=== PATIENT | male | born 1980 | race Caucasian/White ===

== ENCOUNTER 2017-01-29 12:54 | Emergency (ER) | payer SELFPAY ==
[~2017-01-29] VITALS: Ht 188 cm; Wt 88.5 kg
--- NOTE | 2017-01-29 13:15 | NUR ---
PT BIB SELF C/O REED, CP, AND ABD PAIN. CP NONPROVOKED AND NONRADIATING. C/O N/V/D, NO VOMITING NOTED, NO HEMATEMESIS, NO DYSURIA/HEMATURIA. RESP EVEN UNLABORED. SKIN WARM NONDIAPHORETIC. IN ER BED 14 ON MONITOR.
[2017-01-29] MEDS ORDERED: IV NS 0.9% 1,000 ML BAG IV ONE (13:30)
[2017-01-29] MEDS ORDERED: LORAZEPAM INJ 2 MG/ML VIAL IV ONE (13:30)
[2017-01-29] MEDS ORDERED: LORAZEPAM INJ 2 MG/ML VIAL ONE (13:32)
[2017-01-29] MEDS ORDERED: IV NS 0.9% 1,000 ML ONE (13:32)
[2017-01-29] MEDS ORDERED: IV SET PRIMARY 1 EA INFUS.SET MC ONE (13:32)
[2017-01-29 13:57] LABS: TROPONIN I < 0.017 ng/mL (0.00-0.056)
[2017-01-29 14:07] LABS: HEMATOCRIT 45 % (39-51); HEMOGLOBIN 15.3 g/dL (13.5-17.5); LYMPHOCYTES # (AUTO) 1.2 /CMM (0.8-4.8); LYMPHOCYTES % (AUTO) 7.2 % (20.0-44.0); MEAN CORPUSCULAR HEMOGLOBIN 31 PG (26.0-33.0); MEAN CORPUSCULAR HGB CONC 34 g/dl (31.0-36.0); MEAN CORPUSCULAR VOLUME 91 fL (80-96); MONOCYTES # (AUTO) 0.6 /CMM (0.1-1.30); MONOCYTES % (AUTO) 3.6 % (2.0-12.0); NEUTROPHILS # (AUTO) 15.3 /CMM (1.8-8.9); NEUTROPHILS % (AUTO) 89.2 % (43.0-81.0); PLATELET COUNT (AUTO) 256 /CMM (150-450); RED BLOOD CELL COUNT(AUTO) 4.91 MIL/uL (4.5-6.0); WHITE BLOOD COUNT (AUTO) 17.1 K/uL (4.3-11.0)
[2017-01-29 14:09] LABS: CALCIUM, SERUM 9.3 mg/dL (8.5-10.1); CARBON DIOXIDE 22 mmol/L (21-32); CHLORIDE 100 mmol/L (98-107); CREATININE 1.5 mg/dL (0.6-1.3); GFR 53 mL/min (>60); GLUCOSE 162 mg/dL (74-106); POTASSIUM 3.3 mmol/L (3.5-5.1); SODIUM SERUM 138 mmol/L (136-145); UREA NITROGEN, BLOOD 12 mg/dL (7-18)
[2017-01-29 14:12] LABS: ALANINE AMINOTRANSFERASE 30 U/L (12-78); ALBUMIN 4.6 g/dL (3.4-5.0); ALKALINE PHOSPHATASE 95 U/L (46-116); ASPARTATE AMINOTRANSFERASE 16 U/L (15-37); BILIRUBIN,DIRECT 0.1 mg/dL (0.0-0.2); BILIRUBIN,TOTAL 0.4 mg/dL (0.2-1.0); LIPASE 96 U/L (73-393); TOTAL PROTEIN, SERUM 7.9 g/dL (6.4-8.2)
--- NOTE | 2017-01-29 14:37 | NUR ---
Patient discharged to home in stable condition. Written and verbal after care instructions given. Patient verbalizes understanding of instruction. IV removed. Catheter intact and site benign. Pressure and 4x4 applied to site. No bleeding noted. AMBULATORY WITH STEADY GAIT.
[2017-01-29 14:39] VITALS: BP 136/79
== END 2017-01-29 14:40 | disposition home or self-care (01) ==
LOC: ER 12:55
DX: R10.9 Unspecified abdominal pain (principal); F41.9 Anxiety disorder, unspecified; R07.89 Other chest pain; R51 Headache
CPT/HCPCS: 36415; 80048; 80076; 83690; 84484; 85025; 93005; 96361; 96374; 99285; A4606; J2060; J7030; Z7610

== ENCOUNTER 2020-09-01 04:46 | Emergency (ER) | payer BC, MEDICAID ==
[~2020-09-01] VITALS: Ht 188 cm; Wt 90.7 kg
[2020-09-01] MEDS ORDERED: ONDANSETRON HCL/PF 4 MG/2 ML VIAL ONE (05:28)
[2020-09-01] MEDS ORDERED: ONDANSETRON HCL/PF 4 MG/2 ML VIAL IVP ONE (05:30)
[2020-09-01] MEDS ORDERED: IV NS 0.9% 1,000 ML BAG IV ONE (05:30)
--- NOTE | 2020-09-01 05:38 | NUR ---
PATIENT CAME TO ER BED 6 C/O MIDEPIGASTRIC PAIN AND NONRADIATING LEFT SIDED CHEST PRESSURE PAIN. PATIENT ADMITS TO SMOKING MARIJUANA REGULARLY. PATIENT IS AAOX4. NO SOB .BREATHING EVENLY AND UNLABORED ON ROOM AIR. CONNECTED TO THE MONITOR.
--- NOTE | 2020-09-01 05:45 | NUR ---
BLOOD DRAWN AND SENT TO THE LAB.
[2020-09-01 05:50] LABS: BASOPHILS # (AUTO) 0.1 /CMM (0.0-0.2); BASOPHILS % (AUTO) 0.5 % (0.0-2.0); EOSINOPHILS % (AUTO) 0.9 % (0.0-6.0); HEMATOCRIT 50 % (39-51); HEMOGLOBIN 16.6 g/dL (13.5-17.5); LYMPHOCYTES # (AUTO) 3.6 /CMM (0.8-4.8); LYMPHOCYTES % (AUTO) 19.9 % (20.0-44.0); MEAN CORPUSCULAR HGB CONC 34 g/dl (31.0-36.0); MEAN CORPUSCULAR VOLUME 94 fL (80-96); MONOCYTES # (AUTO) 1.1 /CMM (0.1-1.30); NEUTROPHILS # (AUTO) 13.2 /CMM (1.8-8.9); NEUTROPHILS % (AUTO) 72.7 % (43.0-81.0); PLATELET COUNT (AUTO) 281 /CMM (150-450); RED BLOOD CELL COUNT(AUTO) 5.25 MIL/uL (4.5-6.0); WHITE BLOOD COUNT (AUTO) 18.1 K/uL (4.3-11.0)
--- NOTE | 2020-09-01 05:51 | NUR ---
radiology at bedside for xr
[2020-09-01] MEDS ORDERED: LORAZEPAM 0.5 MG TABLET ONE (05:52)
--- NOTE | 2020-09-01 05:59 | NUR ---
DR. Katie SANCHEZ NOTIFIED OF LEFT SIDED CHEST PAIN 05/16
[2020-09-01] MEDS ORDERED: LORAZEPAM 0.5 MG TABLET PO ONE (06:00)
[2020-09-01 06:08] LABS: ALANINE AMINOTRANSFERASE 60 U/L (12-78); ALBUMIN 4.4 g/dL (3.4-5.0); ALKALINE PHOSPHATASE 105 U/L (46-116); ASPARTATE AMINOTRANSFERASE 25 U/L (15-37); BILIRUBIN,DIRECT 0.1 mg/dL (0.0-0.2); BILIRUBIN,TOTAL 0.3 mg/dL (0.2-1.0); CALCIUM, SERUM 9.2 mg/dL (8.5-10.1); CARBON DIOXIDE 27 mmol/L (21-32); CHLORIDE 99 mmol/L (98-107); CREATININE 1.1 mg/dL (0.6-1.3); GLUCOSE 120 mg/dL (74-106); LIPASE 210 U/L (73-393); POTASSIUM 3.3 mmol/L (3.5-5.1); SODIUM SERUM 138 mmol/L (136-145); TOTAL PROTEIN, SERUM 8.5 g/dL (6.4-8.2); UREA NITROGEN, BLOOD 14 mg/dL (7-18)
[2020-09-01] MEDS ORDERED: MAG HYDROX/AL HYDROX/SIMETH 30 ML UDC PO ONE (06:30)
[2020-09-01] MEDS ORDERED: FAMOTIDINE/PF INJ 20 MG/2 ML VIAL IV ONE ×2 (06:30→06:31)
[2020-09-01] MEDS ORDERED: LIDOCAINE VISCOUS 2% UD 15 ML UDC MM ONE (06:30)
[2020-09-01] MEDS ORDERED: LIDOCAINE VISCOUS 2% UD 15 ML UDC ONE (06:31)
[2020-09-01] MEDS ORDERED: MAG HYDROX/AL HYDROX/SIMETH 30 ML UDC ONE (06:31)
--- NOTE | 2020-09-01 06:43 | NUR ---
Patient discharged to home in stable condition. Written and verbal after care instructions given. Patient verbalizes understanding of instruction.
--- NOTE | 2020-09-01 06:43 | NUR ---
IV removed. Catheter intact and site benign. Pressure and 4x4 applied to site. No bleeding noted.
--- NOTE | 2020-09-01 06:43 | NUR ---
PATIENT CALLED [facility] FOR A RIDE.
[2020-09-01 07:01] VITALS: BP 132/77
== END 2020-09-01 07:02 | disposition home or self-care (01) ==
LOC: ER 04:48
DX: R10.9 Unspecified abdominal pain (principal); R11.2 Nausea with vomiting, unspecified; R19.7 Diarrhea, unspecified; F41.1 Generalized anxiety disorder; F12.10 Cannabis abuse, uncomplicated; R00.2 Palpitations; F90.9 Attention-deficit hyperactivity disorder, unspecified type; Z60.2 Problems related to living alone
CPT/HCPCS: 36415; 71045; 80048; 80076; 82962; 83690; 84484; 85025; 93005; 96361; 96374; 96375; 99285; J2405; J3490; J7030

== ENCOUNTER 2025-08-03 19:01 | Inpatient (IN) | payer OTHER ==
[~2025-08-03] VITALS: Ht 188 cm; Wt 93.5 kg
[2025-08-03 19:36] LABS: PLATELET COUNT (AUTO) 283 K/uL (150-450); RED BLOOD CELL COUNT(AUTO) 5.28 MIL/uL (4.5-6.0); RED CELL DISTRIBUTION WIDTH 13.4 % (11.5-15.0); WHITE BLOOD COUNT (AUTO) 18.7 K/uL (4.3-11.0)
[2025-08-03] MEDS ORDERED: KETOROLAC TROMETHAMINE 15 MG/ML VIAL ONE (19:37)
[2025-08-03] MEDS ORDERED: PANTOPRAZOLE 40 MG VIAL ONE (19:37)
[2025-08-03] MEDS ORDERED: ONDANSETRON HCL/PF 4 MG/2 ML VIAL ONE (19:37)
[2025-08-03 19:41] LABS: CALCIUM, SERUM 9.8 mg/dL (8.5-10.1); CREATININE 1.6 mg/dL (0.6-1.3); SODIUM SERUM 139 mmol/L (136-145); UREA NITROGEN, BLOOD 15 mg/dL (7-18)
[2025-08-03] MEDS: PANTOPRAZOLE 40 MG VIAL IV ONE (19:44)
[2025-08-03] MEDS: IV NS 0.9% 1,000 ML BAG IV ONE ×2 (19:44→21:07)
[2025-08-03] MEDS: KETOROLAC TROMETHAMINE 15 MG/ML VIAL IV ONE (19:44)
[2025-08-03] MEDS: ONDANSETRON HCL/PF 4 MG/2 ML VIAL IVP ONE (19:44)
[2025-08-03 19:53] LABS: NT-PRO BNP 65 pg/mL (0-125)
[2025-08-03 20:01] LABS: ASPARTATE AMINOTRANSFERASE 25.0 U/L (15-37); TOTAL PROTEIN, SERUM 8.7 g/dL (6.4-8.2)
[2025-08-03] MEDS ORDERED: MORPHINE SULFATE INJ 4 MG/ML DISP.SYRIN ONE (21:04)
[2025-08-03] MEDS: MORPHINE SULFATE INJ 2 MG/ML DISP.SYRIN IV ONE (21:07)
[2025-08-03 21:46] VITALS: O2SAT 100
[2025-08-03] MEDS ORDERED: MAGNESIUM HYDROXIDE 30 ML UDC PO PRN (22:00)
[2025-08-03] MEDS ORDERED: MAG HYDROX/AL HYDROX/SIMETH 30 ML UDC PO PRN (22:00)
[2025-08-03] MEDS: IV LR 1000 ML 1,000 ML IV SCH (23:33)
[2025-08-04] MEDS: MORPHINE SULFATE INJ 4 MG/ML DISP.SYRIN IV PRN (01:04)
[2025-08-04 06:58] LABS: PLATELET COUNT (AUTO) 236 K/uL (150-450); RED BLOOD CELL COUNT(AUTO) 4.65 MIL/uL (4.5-6.0); RED CELL DISTRIBUTION WIDTH 13.4 % (11.5-15.0); WHITE BLOOD COUNT (AUTO) 15.2 K/uL (4.3-11.0)
[2025-08-04 07:14] LABS: ASPARTATE AMINOTRANSFERASE 26.0 U/L (15-37); CALCIUM, SERUM 8.9 mg/dL (8.5-10.1); CREATININE 1.0 mg/dL (0.6-1.3); PHOSPHORUS 3.8 mg/dL (2.5-4.9); SODIUM SERUM 141.0 mmol/L (136-145); TOTAL PROTEIN, SERUM 7.0 g/dL (6.4-8.2); UREA NITROGEN, BLOOD 15.0 mg/dL (7-18)
[2025-08-04] MEDS: PANTOPRAZOLE 40 MG VIAL IV SCH (08:49)
[2025-08-04 09:06] VITALS: BP 122/89; TEMP 97.9; O2SAT 98
[2025-08-04] MEDS ORDERED: SEMA0.25 SQ (09:06)
[2025-08-04] MEDS: IV LR 1000 ML 1,000 ML IV PRN (11:22)
[2025-08-04] MEDS: METOCLOPRAMIDE HCL 10 MG/2 ML VIAL IV SCH (13:25)
[2025-08-04 16:13] VITALS: BP 134/90; TEMP 97.7; O2SAT 98
[2025-08-04] MEDS: ONDANSETRON HCL/PF 4 MG/2 ML VIAL IVP PRN (18:02)
[2025-08-04 20:00] VITALS: BP 137/85; TEMP 98.1; O2SAT 99
[2025-08-05] MEDS: ACETAMINOPHEN 325 MG TABLET PO PRN (01:03)
[2025-08-05 07:00] LABS: PLATELET COUNT (AUTO) 185 K/uL (150-450); RED BLOOD CELL COUNT(AUTO) 5.06 MIL/uL (4.5-6.0); RED CELL DISTRIBUTION WIDTH 13.3 % (11.5-15.0); WHITE BLOOD COUNT (AUTO) 12.4 K/uL (4.3-11.0)
[2025-08-05 07:33] LABS: ASPARTATE AMINOTRANSFERASE 66.0 U/L (15-37); CALCIUM, SERUM 8.8 mg/dL (8.5-10.1); CREATININE 1.0 mg/dL (0.6-1.3); LDL 144 mg/dL (0-99); PHOSPHORUS 2.5 mg/dL (2.5-4.9); SODIUM SERUM 139.0 mmol/L (136-145); TOTAL PROTEIN, SERUM 7.7 g/dL (6.4-8.2); UREA NITROGEN, BLOOD 10.0 mg/dL (7-18)
[2025-08-05 08:29] VITALS: BP 130/94; TEMP 98.1; O2SAT 98
[2025-08-05] MEDS: PANTOPRAZOLE 40 MG TABLET.DR PO SCH (08:58)
[2025-08-05] MEDS ORDERED: IOHEXOL-300 100 ML VIAL IV ONE (12:07)
[2025-08-05] MEDS ORDERED: IV NS 0.9% 250 ML IV ONE (12:08)
[2025-08-05 16:17] VITALS: BP 136/100; TEMP 98.1; O2SAT 96
[2025-08-05] MEDS ORDERED: ATORVASTATIN 10 MG TABLET PO SCH (22:00)
== END 2025-08-05 16:40 | disposition left against medical advice (07) | DRG 439 ==
LOC: ER 19:06 → MED 22:04
PROVIDERS: ATTEND Nurse Practitioner Family
DX: K85.30 Drug induced acute pancreatitis without necrosis or infection (principal); N17.9 Acute kidney failure, unspecified; K76.0 Fatty (change of) liver, not elsewhere classified; D72.823 Leukemoid reaction; D72.829 Elevated white blood cell count, unspecified; T50.995A Adverse effect of other drugs, medicaments and biological substances, initial encounter; Y92.009 Unspecified place in unspecified non-institutional (private) residence as the place of occurrence of the external cause
CPT/HCPCS: 36415; 71045-TC; 76705-TC; 80048-TC; 80053-TC; 80061-TC; 80076-TC; 83690-TC; 83735-TC; 83880; 84100-TC; 84484-TC; 85025-TC; A4223; G0378; J1885; J2270; J2405; J2470; J2765; J7030; J7050; J7120; Q9967